=== PATIENT | female | born 1950 | race Caucasian/White ===

== ENCOUNTER 2018-08-01 15:29 | Emergency (ER) | payer OTHER ==
[2018-08-01 19:42] LABS: ADD MAN DIFF? NO
[2018-08-01 19:45] LABS: WHITE BLOOD COUNT 8.9 10^3/ul (4.8-10.8)
[2018-08-01 19:45] LABS: ABNORMAL IP MESSAGE 1; BASOPHIL # 0.1 10^3/ul (0.0-0.1); BASOPHILS % 0.6 % (0.0-2.0); EOSINOPHILS # 0.2 10^3/ul (0.0-0.5); EOSINOPHILS % 2.6 % (0.0-7.0); HEMATOCRIT 27.8 % (37.0-47.0); HEMOGLOBIN 7.7 g/dl (12.0-16.0); LYMPHOCYTES # 2.1 10^3/ul (0.8-2.9); LYMPHOCYTES % 23.6 % (15.0-51.0); MEAN CORPUSCULAR HEMOGLOBIN 17.5 pg (29.0-33.0); MEAN CORPUSCULAR HGB CONC 27.7 g/dl (32.0-37.0); MEAN CORPUSCULAR VOLUME 63.2 fl (82.0-101.0); MEAN PLATELET VOLUME 10.2 fl (7.4-10.4); MONOCYTE # 0.6 10^3/ul (0.3-0.9); MONOCYTES % 6.9 % (0.0-11.0); NEUTROPHIL # 5.9 10^3/ul (1.6-7.5); NEUTROPHILS % 65.4 % (39.0-77.0); NUCLEATED RED BLOOD CELLS% 0.4 /100WBC (0.0-0.0); PLATELET COUNT 568 10^3/UL (140-415); RED CELL DISTRIBUTION WIDTH 24.5 % (11.5-14.5)
[2018-08-01 19:48] LABS: INR 0.91; PROTIME 12.4 Sec (11.9-14.9)
[2018-08-01 19:49] LABS: PARTIAL THROMBOPLASTIN TIME 33.7 Sec (23.0-35.0)
[2018-08-01 19:53] LABS: ANION GAP 7 (5-13); BLOOD UREA NITROGEN 21 mg/dl (7-20); CALCIUM 9.3 mg/dl (8.4-10.2); CARBON DIOXIDE 27 mmol/L (21-31); CHLORIDE 105 mmol/L (97-110); CREATININE 0.79 mg/dl (0.44-1.00); Estimated GFR > 60 mL/min (>60); GLUCOSE 135 mg/dl (70-220); POTASSIUM 4.7 mmol/L (3.5-5.1); SODIUM 139 mmol/L (135-144)
[2018-08-01] MEDS: LEVALBUTEROL (NEB) 1.25 MG/0.5 ML AMP INH (20:22)
[2018-08-01] MEDS: IPRATROPIUM (NEB) 0.5 MG/2.5 ML AMP NEB (20:22)
== END 2018-08-01 20:47 | disposition home or self-care (01) ==
LOC: E/R 15:29
DX: J40 Bronchitis, not specified as acute or chronic (principal); R42 Dizziness and giddiness
CPT/HCPCS: 36415; 71045; 80048; 85025; 85610; 85730; 86850; 86900; 86901; 93005; 94664; 99285-25